=== PATIENT | male | born 2000 | race Caucasian/White ===

== ENCOUNTER 2025-04-30 06:10 | Emergency (ER) | payer OTHER, SELFPAY ==
[2025-04-30 06:15] VITALS: BP 128/80
--- NOTE | 2025-04-30 06:27 | ED.GENMED ---
History of Present Illness
General
Chief Complaint: Abdominal Symptoms
Time Seen by Provider: 04/30/25 06:27
History of Present Illness
History of Present Illness:
FOCUSED PAST MEDICAL HISTORY
- No significant past medical history
REVIEW OF OLD RECORDS
- I reviewed records, the patient was seen here in 2009 with abdominal pain
Note:
CHIEF COMPLAINT(S)
Diarrhea and nausea.
HISTORY OF PRESENT ILLNESS
The patient is a 24-year-old male presenting with symptoms of diarrhea and nausea that began around 10:00 PM last night. The patient reports experiencing diarrhea initially, without any vomiting, just nausea. The patient denies recent antibiotic
use. No other individuals in the household are currently ill. There is no significant abdominal pain, with the patient experiencing only expected minor discomfort and no localized tenderness. The patient reports eating wings prior to the symptom
onset, raising suspicion of food-related gastrointestinal upset. No blood in stools or history of inflammatory bowel disease, including Crohns disease or ulcerative colitis, was noted. The patient mentions using Pepto-Bismol without significant
relief.
The patient expressed a preference to avoid intravenous interventions and declined treatment with intravenous fluids. Instead, the patient inquired about the use of hzko-epk-jbnwjgy medications like Imodium, which was discussed as a potential, but
not necessarily recommended, remedy due to the potential to cause constipation. The patient was advised that symptoms might resolve naturally, typically within a day or two. No signs of severe dehydration were evident upon examination, and no red
flag symptoms such as fever were reported.
REVIEW OF SYSTEMS
- Gastrointestinal: Reports diarrhea and nausea. No vomiting or significant abdominal pain. Denies blood in stools or history of inflammatory bowel diseases.
- General: No fever.
- Others negative or not discussed.
PHYSICAL EXAM
General: Alert, no acute distress.
Skin: Warm, dry.
Head: Normocephalic, atraumatic.
Neck: Supple, trachea midline.
Eyes, Ears, Nose, Mouth, and Throat: Oral mucosa moist.
Cardiovascular: Normal peripheral perfusion, No edema. He is not tachycardic.
Respiratory: Respirations are non-labored.
Gastrointestinal: Abdomen nondistended, with minimal generalized tenderness if any
Back: Normal range of motion, Normal alignment.
Musculoskeletal: Normal range of motion, normal strength.
Neurological: Alert and oriented to person, place, time, and situation, No focal neurological deficit observed.
Psychiatric: Cooperative, appropriate mood & affect.
PLAN
1. Prescribe ondansetron (Zofran) for nausea, with instructions to fill the prescription at a local pharmacy.
2. Encourage hydration and dietary precautions, advising the patient that symptoms should resolve naturally in one to two days.
3. Discussed potential use of mtey-yrq-hlbdowo Imodium with caution due to risk of constipation.
4. Advised follow-up if symptoms persist beyond expected duration or if new concerning symptoms develop.
DIFFERENTIAL DIAGNOSIS
The Differential Diagnosis includes, in no particular order and is not limited to:
1. Viral gastroenteritis
2. Foodborne illness
3. Bacterial gastroenteritis
4. Medication-induced diarrhea (unlikely)
5. Irritable bowel syndrome
6. Acute gastroenteritis
7. Parasite infection
8. Lactose intolerance
9. Stress-related gastrointestinal symptoms
10. Early inflammatory bowel disease (low suspicion)
SUMMARY OF ENCOUNTER
The patient is a 24-year-old male who presented to the emergency department with symptoms of diarrhea and nausea that began last night around 10:00 PM. The patient denied any vomiting and was not interested in intravenous interventions or further
diagnostic workup. He declined lab work and IV fluids, expressing a preference to manage symptoms with medication. Diagnostic considerations included foodborne illness with possible contribution from ingesting wings prior to symptom onset. The
patient had used eylb-cgs-hllpupm Pepto-Bismol without significant relief.
PLAN
1. The patient was prescribed ondansetron (Zofran) for nausea, with instructions provided to fill the prescription at a local pharmacy.
2. Advised the patient on hydration and dietary precautions, and counseled that symptoms might resolve naturally within one to two days.
3. Discussed the potential use of uexf-ldi-tvkkcbm loperamide (Imodium) with caution due to the risk of constipation.
4. Instructed to follow up if symptoms persist beyond the expected duration or if new concerning symptoms develop.
PATIENT EDUCATION AND COUNSELING
The patient was educated on the dietary measures and hydration necessary to alleviate his symptoms and was counseled on the use of prescribed and qdti-wyb-pmvivyv medications. It was emphasized that recovery is expected within a day or two, and
vigilance for any new or worsening symptoms warranting follow-up was stressed.
FOLLOW-UP INSTRUCTIONS
The patient was advised to follow up if symptoms do not resolve within a couple of days or if there are any concerning developments such as fever, severe abdominal pain, or blood in stool.
MEDICATION RECONCILIATION
1. Ondansetron was prescribed for nausea.
2. Discussed the use of loperamide (Imodium) for diarrhea relief, with caution advised due to potential constipation.
MEDICAL DECISION MAKING
- Number and Complexity of Problems Addressed: DDx includes viral gastroenteritis, foodborne illness, bacterial gastroenteritis, irritable bowel syndrome, and others.
- Data:
Category 2
My independent review of the patients history and presentation guided the decision for symptomatic treatment without lab work.
- Risk:
The prescription medication was prescribed for symptom management, and intervention escalation was not pursued due to patient preference for outpatient management.
DIAGNOSIS
- Nausea with diarrhea (R11.2)
Phy Exam
Physical Exam
Physical Exam:
See HPI
Course
Orders/Labs/Results
Orders:
Orders
04/30/25 06:34
Ondansetron Orally Disint [Zofran Odt (Orally Disintegrating)] 4 mg PO NOW STA
Vital Signs
Initial and Last Documented VS:
Initial Vital Signs
Temp Pulse Resp BP Pulse Ox
37.2 C 74 20 128/80 100
04/30/25 06:15 04/30/25 06:15 04/30/25 06:15 04/30/25 06:15 04/30/25 06:15
Last Documented Vital Signs
Temp Pulse Resp BP Pulse Ox
37.2 C 74 20 128/80 100
04/30/25 06:15 04/30/25 06:15 04/30/25 06:15 04/30/25 06:15 04/30/25 06:28
*Pulse Oximetry
SaO2: 100
Oxygen Mode of Delivery: Room air
Patient hypoxic: no
*Critical Care Note
Total Time (30-74mins, 75-104mins- exclusive of procedures): Not Applicable
ED Attending Note
-
Portions of this chart may have been created with voice recognition software.� Occasional wrong word or��sound alike� substitutions may have occurred due to the inherent limitations of voice recognition software.
Discharge Plan
Departure
Patient Disposition: Home (Routine Discharge)
Date of Disposition: 04/30/25
Time of Disposition: 06:34
Patient with high blood pressure during this ER visit?: Yes
Discharge Problem:
Diarrhea, Nausea
Instructions: Diarrhea in teens and adults, Adams Diet, Nausea and Vomiting, Adult (DC)
Prescriptions:
New
ondansetron HCl 4 mg tablet
4 mg PO Q8H PRN (Reason: nausea and vomiting) Qty: 10 0RF
Activity Restrictions/Additional Instructions:
Although I do not strongly recommended taking this medication for diarrhea, you could take mhwt-ylv-qcrnerd Imodium to help with diarrhea symptoms. I did send a prescription for Zofran to your pharmacy to help with nausea. Return here if worse or
other concerns.
Interventions
Interventions:
*Risk Screen - Suicide Last Done: 04/30/25 06:15
*Neglect/Abuse Screening Last Done: 04/30/25 06:15
Discharge Date and Time
Print Language: DANISH
[2025-04-30] MEDS: ZOFRAN ODT (ORALLY DISINTEGRATING) 4 MG PO (06:37)
[2025-04-30 06:39] VITALS: BMI 24.4
[2025-04-30 06:43] VITALS: BP 127/75
== END 2025-04-30 06:54 | disposition home or self-care (01) ==
LOC: EMR 06:10
PROVIDERS: EMERGENCY PHYSICIAN Emergency Medicine; FAMILY PHYSICIAN Registered Nurse
DX: R19.7 Diarrhea, unspecified (principal); R11.0 Nausea
CPT/HCPCS: 99283